=== PATIENT | male | born 1995 | race Caucasian/White ===

== ENCOUNTER 2020-09-24 09:54 | Emergency (ER) | payer OTHER, SELFPAY ==
[2020-09-24 10:02] VITALS: BP 157/85; PULSE 91; RESP 18; TEMP 36.3; O2SAT 99
--- NOTE | 2020-09-24 10:12 | ED.URI ---
HPI - URI/Sore Throat General Chief Complaint: Upper Respiratory Infection Stated Complaint: fatigue fever chills Time Seen by Provider: 09/24/20 10:12 Source: patient, RN notes reviewed and old records reviewed Mode of arrival: ambulatory Limitations: no limitations History of Present Illness HPI Narrative: 25-year-old male who presents to [facility] with complaints of having chills, body aches, decrease appetite,and intermittent fevers for the past 2 days. Patient states that he had a fever up to 103F twice during the past 2 days and he has taken Naprosyn and Mucinex for his symptoms, patient is afebrile at time of triage. Patient states that his girlfriend is not feeling well also and they have 3 month old infant at home. Patient states that he has not had COVID immunizations. MD elicited complaint: fever, rhinorrhea and other (body aches, fatigue) Pertinent past history: asthma Onset (ago): day(s) (2) Consistency: constant Description of mucous: clear Able to tolerate fluids by mouth: Yes Exacerbating factors: nothing Relieving factors: NSAID and other (mucinex) Associated symptoms: fever, chills, myalgias, rhinorrhea, nasal congestion, cough (rare) and other (fatigue) Treatments prior to arrival: other (Mucinex, naprosyn) Related Data Allergies Allergy/AdvReac Type Severity Reaction Status Date / Time No Known Allergies Allergy Verified 09/24/20 10:31 Review of Systems Review of Systems: Narrative: CONSTITUTIONAL: Positive fever, chills, or sweats. EYES: Denies visual changes, redness, or discharge. ENT: positive rhinorrhea,mild nasal congestion,no sore throat, or otalgia. CARDIOVASCULAR: Denies chest pain, palpitations, or edema. RESPIRATORY: Occasional dry cough denies dyspnea. GASTROINTESTINAL: Denies abdominal pain, nausea, vomiting, or diarrhea. GENITOURINARY: Denies dysuria or hematuria. SKIN: Denies rash or itching. MUSCULOSKELETAL: Denies back pain, joint pain,positive for generalized body aches NEUROLOGIC: Denies headache, numbness, or weakness.fatigue PSYCHIATRIC: Denies anxiety or depression. All systems reviewed & are unremarkable except as noted in HPI and below PMFSH Past Medical History Medical History (Updated 09/24/20 @ 10:45 by Meenu He NP) Asthma Closed left ankle fracture Dislocation of right shoulder joint Tremor Surgical History Surgical History (Updated 09/24/20 @ 10:34 by Meenu He NP) History of inguinal hernia repair Family History Family History (Updated 09/24/20 @ 10:35 by Meenu He NP) Grandparent Diabetes mellitus Mother Asthma Social History Social History (Updated 09/24/20 @ 10:35 by Meenu He NP) Smoking status: Never smoker Alcohol intake: current Alcohol use details: rare social Substance use: never Living arrangements: with family Gender identity (if verbalized by the patient): Male Comments At time of signature, agree with nursing past medical, surgical, social and family history. There is no relevant family history pertinent to the presenting complaint Exam Narrative: Exam Narrative: GENERAL: Well-appearing, well-nourished, and in no acute distress. HEAD: Normocephalic, atraumatic. EYES: PERRLA and EOMI. ENT: Nares mild redness, clear rhinorrhea no epistaxis. Mucous membranes moist. TM's normal with good light reflex, throat mild redness with no lesions or exudates, no tonsil enlargement, post nasal drainage present NECK: Supple.no lymphadenopathy CHEST: Clear to auscultation. No respiratory distress. rare cough SAO2 99% on room air HEART: Regular rate and rhythm. No murmur heard. Normal peripheral pulses. ABDOMEN: Soft, nontender, nondistended, normal active bowel sounds. EXTREMITIES: Normal range of motion. No edema. SKIN: Warm, dry, no rash. NEURO: No focal deficits. Alert and oriented x3. Course Vital Signs Vital signs: Vital Signs Temperature 36.3 C L 09/24/20 10:02 Pulse Rate 91 09/24/20
[2020-09-24 10:31] VITALS: BP 157/85; PULSE 91; RESP 18; TEMP 36.3; O2SAT 99
== END 2020-09-24 10:43 | disposition home or self-care (01) ==
PROVIDERS: Emergency Provider Registered Nurse
DX: U07.1 COVID-19 (principal); J45.909 Unspecified asthma, uncomplicated
CPT/HCPCS: 87081; 87426; 87804; 87880; 99203; C9803; G0463

== ENCOUNTER 2022-06-17 10:40 | Emergency (ER) | payer OTHER, SELFPAY ==
[2022-06-17 10:46] VITALS: BP 145/90; PULSE 83; RESP 20; TEMP 36.6; O2SAT 100
--- NOTE | 2022-06-17 10:55 | ED.DENTAL ---
HPI - Dental/Oral General Chief complaint: Dental/Oral Stated complaint: pain from tooth infection Time Seen by Provider: 06/17/22 10:55 History of Present Illness HPI Narrative: Patient presents with dental pain. Patient reports he had a fever of 103 this morning and states he has been on Amoxil for 3 days prescribed by his dentist for tooth infection. Patient states he took ibuprofen this morning and a dose of prednisone and now his fever is back to normal. Patient has an appointment to follow-up with his dentist in 2 weeks but states he will call them Sunday no other changes. Patient denies any trouble swallowing no drooling. Patient states he needs a work note since he missed work this morning due to his dental pain. Related Data Home Medications Medication Instructions Recorded Confirmed amoxicillin 500 mg capsule 500 mg PO USEASDIRECTD 06/17/22 06/17/22 Allergies Allergy/AdvReac Type Severity Reaction Status Date / Time No Known Allergies Allergy Verified 06/17/22 10:55 Review of Systems Review of Systems: CONSTITUTIONAL: Denies fever, chills, or sweats. EYES: Denies visual changes, redness, or discharge. ENT: Denies rhinorrhea, congestion, sore throat, or otalgia. CARDIOVASCULAR: Denies chest pain, palpitations, or edema. RESPIRATORY: Denies cough or dyspnea. GASTROINTESTINAL: Denies abdominal pain, nausea, vomiting, or diarrhea. GENITOURINARY: Denies dysuria or hematuria. SKIN: Denies rash or itching. MUSCULOSKELETAL: Denies back pain, joint pain, or myalgia. NEUROLOGIC: Denies headache, numbness, or weakness. PSYCHIATRIC: Denies anxiety or depression. [facility] Past Medical History Medical History (Updated 06/17/22 @ 11:01 by AIDEE Dockery) Asthma Closed left ankle fracture Dislocation of right shoulder joint Tremor Surgical History Surgical History (Updated 09/24/20 @ 10:34 by Meenu He NP) History of inguinal hernia repair Family History Family History (Updated 09/24/20 @ 10:35 by Meenu He NP) Grandparent Diabetes mellitus Mother Asthma Social History Social History (Updated 09/24/20 @ 10:35 by Meenu He NP) Smoking status: Never smoker Alcohol intake: current Alcohol use details: rare social Substance use: never Living arrangements: with family Gender identity (if verbalized by the patient): Male Comments At time of signature, agree with nursing past medical, surgical, social and family history. There is no relevant family history pertinent to the presenting complaint Exam Narrative: GENERAL: Well-appearing, well-nourished, and in no acute distress. HEAD: Normocephalic, atraumatic. EYES: PERRLA and EOMI. ENT: Nares clear, no rhinorrhea or epistaxis. Mucous membranes moist. NO YUE APICAL SWELLING, TOOTH TENDER TO PALPATION. NO FACIAL SWELLING. NO TRISMUS. ABLE TO OPEN MOUTH FULLY. NO NECK SWELLING OR CHRIS'S ANGINA. NO ABSCESS TO BE DRAINED. no drooling, trismus, facial asymmetry or significant neck swelling NECK: Supple. CHEST: Clear to auscultation. No respiratory distress. HEART: Regular rate and rhythm. No murmur heard. Normal peripheral pulses. ABDOMEN: Soft, nontender, nondistended, normal active bowel sounds. EXTREMITIES: Normal range of motion. No edema. SKIN: Warm, dry, no rash. NEURO: No focal deficits. Alert and oriented x3. Maida Coma Scale Eye Opening: Spontaneous 4 Henderson Coma Scale Motor: Obeys Commands 6 Henderson Coma Scale Verbal: Oriented 5 Maida Coma Scale Total 15 Course Course Level of Care: Express Care Visit Vital Signs Vital signs: Vital Signs Temperature 36.6 C 06/17/22 10:46 Pulse Rate 83 06/17/22 10:46 Respiratory Rate 20 06/17/22 10:46 Blood Pressure 145/90 H 06/17/22 10:46 Pulse Oximetry 100 06/17/22 10:46 Oxygen Delivery Room Air 06/17/22 10:46 Temperature 36.6 C 06/17/22 10:46 Pulse Rate 83 06/17/22 10:46 Respiratory Rate 20 06/17/22 10:46
== END 2022-06-17 11:10 ==
PROVIDERS: Emergency Provider Nurse Practitioner Family; PCP Hospitalist
DX: K08.89 Other specified disorders of teeth and supporting structures (principal); K02.9 Dental caries, unspecified; K04.7 Periapical abscess without sinus; J45.909 Unspecified asthma, uncomplicated
CPT/HCPCS: 99213; G0463